=== PATIENT | female | born 1945 | race Caucasian/White ===

== ENCOUNTER 2019-05-01 11:48 | Observation (INO) | payer MEDICARE, OTHER ==
[~2019-05-01] VITALS: Ht 165.1 cm; Wt 65.8 kg
[~2019-05-01 11:48] MED LIST: ADULT ASPIRIN81 MG PO; ALENDRONATE SOD35 MG PO; ASPIRIN EC81 MG PO; CALCIUM600 MG PO; CENTRUM SILVER1 EAC1 PO; CINNAMON500 MG PO; FENOFIBRATE54 MG PO; GABAPENTIN600 MG PO; METFORMIN HCL500 MG PO; SIMVASTATIN20 MG PO; VITAMIN B-121000 MC1 PO; VITAMIN C WITH500 MG PO; VITAMIN D32000 UNIT PO; Z.0.GLUCOPHAGE500 MG MT; Z.0.SIMVASTATIN20 MG MT
--- OUTSIDE RECORDS SUMMARY | 2019-05-01 11:51 | XMS REPORT ---
Author Author [facility] Address Unknown Phone Unavailable Care Team Providers Care Brand Advocate Name Role Phone Unavailable Unavailable Problems This patient has no known problems. Allergies, Adverse Reactions, Alerts This patient has no known allergies or adverse reactions. Medications This patient has no known medications. Results Test Description Test Time Test Comments Text Results Atomic Results Result Comments BRAIN IMAGING, SPECT 2019-03-22 14:23:00 Reason for Exam:->parkinsonism FINAL REPORT PROCEDURE: BRAIN IMAGING - SPECT w/DaTScan CPT CODE: 18608 INDICATION: Parkinsonism PROTOCOL: Approximately 1 hour after oral administration of SSKI, 5.0 mCi of I-123 ioflupane (DaTScan) was injected intravenously. Static images of the head and neck were obtained beginning approximately 5 hours later. Tomographic reconstruction was performed in multiple planes. FINDINGS: Tracer distribution within the visualized structures is physiologic. IMPRESSION: Normal Study Signed: Kairna Stewart Verified Date/Time: 03/22/2019 14:23:19 Reading Location: [address] Reading Room
--- OUTSIDE RECORDS SUMMARY | 2019-05-01 11:51 | XMS REPORT | Summary of Care ---
Author Author [facility] Organization [facility] Address Unknown Phone Unavailable Care Team Providers Care It Help Desk Technician Name Role Phone Michelle Palomo MD PCP Unavailable Reason for Visit * Reason Comments Initial Visit * Consult, Test & Treat (Routine) Referred By Contact Referred To Contact Status Reason Specialty Diagnoses / Procedures Ai Ribera MD [address] [place] [address] Alonzo Carpenter MD [address] [place] [phone] Closed Ophth Diagnoses Neuro-Ophthalmol Unspecified ogy / esotropia Ophthalmology Diplopia Sixth (abducent) nerve palsy, right eye 6 nerve palsy of OD/Diplopia and Esotropia P rocedures LA OFFICE OUTPATIENT NEW 60 MINUTES NEURO NOV W ODS Encounter Details Care Team Description Date Type Department Alonzo Carpenter MD [address] [place] [phone] Initial Visit 04/15/2019 Office Visit [facility] Ophthalmology [address] [place] [phone] Allergies No Known Allergiesdocumented as of this encounter (statuses as of 04/15/2019) Medications End Date Status Medication Sig Dispensed Refills Start Date Active simvastatin (ZOCOR) 20 MG 0 tablet 7 Active aspirin 81 MG tablet Take 81 mg by 0 mouth. Active gabapentin (NEURONTIN) 0 600 MG tablet 7 documented as of this encounter (statuses as of 04/15/2019) Active Problems Problem Noted Date Dizziness 08/11/2017 documented as of this encounter (statuses as of 04/15/2019) Social History Date Tobacco Use Types Packs/Day Years Used Never Smoker Smokeless Tobacco: Never Used Drinks/Week oz/Week Comments Alcohol Use No Sex Assigned at Date Recorded Not on file Industry Job Start Date Occupation Not on file Not on file Not on file Travel End Travel History Travel Start No recent travel history available. documented as of this encounter Last Filed Vital Signs Not on filedocumented in this encounter Patient Instructions * Patient Instructions* Alonzo Carpenter MD - 04/15/2019 9:00 AM CDT I saw Ms. Trevizo at the [facility] on 04/15/2019. The following is a summary of the patient's ophthalmic evaluation prepared from [employer], our electronic medical record: 74 y.o. female Sent by: Dr. Ribera. She has had diplopia. On 03-28-19 and ESR (four) and CRP were normal. She had eye muscle surgery in April 2018. She said the diplopia improved for a few months and then recurred. She had an MRI of brain on 08-16-18, the report: 1. 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 2. Findings consistent with cerebral atrophy and mild white matter tract chronic microvascular ischemic change. 3. The 4 mm T2 low signal nodule in the right anterior sella is grossly stable s zahra the sella protocol MRI scan of September 28, 2016. Differential diagnosis includ es a Rathke cleft cyst versus pituitary microadenoma. She had an NM Spect study on 03-22-19, the report: Normal Study Ach receptor antibodies were normal. She said she could make the diplopia single with attempts to focus. She had diplopia for a few years before eye muscle surgery. She said the diplopia was intermittent but was present all the time if she was r elaxing. I reviewed portions of the history and review of systems, past medical history, and past ocular history, medications, allergies, and family history. I reviewed the new patient forms including review of systems, medications, aller gies, family history and social history. Automated Visual Field, Intermediate - OU - Both Eyes Visual Field Interpretation: 24-2 OD OS Result Peripheral constriction Peripheral constriction OCT, Optic Nerve - OU - Both Eyes OCT RNFL OD OS Interpretation Borderline Normal Measures Global 101 Global 101 OCT, Retina - OU - Both Eyes OCT Macula OD OS Interpretation Normal Normal Measures Centrally 268 Centrally 274 A sensorimotor examination was performed in order to assess ocular alignment for the potential diagnosis and/or treatment of an ocular motility disorder The sensorimotor examination included Stereoscopic testing with + Fly showed esotropia Impression: My opinion was, 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 The evaluation for another cause apart from strabismus had been unrevealing thus far. I suggested an orbital MRI with contrast. She said she was having an MRI on 04-15-19. I suggested she bring her prior imaging and return in 6 weeks. The report from today's examination was discussed, printed, and handed to the angi ramirez in order to help them understand their condition. The medications recommended by other providers have been reviewed; however, this does not constitute an endorsement of the use of those medications. If you have questions about the use of a particular medication please contact the provider that prescribed it for you. If you have been asked to bring medical records (including imaging studies on fi lm or CD) please do not mail them or try to have them sent to us. Please bring them with you to your appointment as this is the only way to be certain that the y arrive when you are here. Base Ophthamology Exam Visual Acuity (Snellen - Linear) Right Left Dist cc 20/20 20/20 Correction: Glasses Tonometry (Applanation, 9:40 AM) Right Left Pressure 12 12 Pupils Dark Light Shape React APD Right 3 2 Round Brisk None Left 3 2 Round Brisk None Visual Thakkar (Counting fingers) Left Right Full Full Extraocular Movement Right Left Full Full Perhaps a slight adduction deficit OD and abduction deficit OS With alternate cover testing CC Prism Diopters Primary Position 2 eso Right Gaze 8 eso Left Gaze 2 eso Up Gaze ortho Down Gaze 8 eso Near ortho Neuro/Psych Oriented x3: Yes Mood/Affect: Normal Dilation Both eyes: 2.5% Les Synephrine, 0.5% Mydriacyl @ 9:40 AM Edited by: Kan Abdul OSC; Alonzo Carpenter MD Base Ophthalmology Exam Addl. Tests Amsler Right Left Normal Normal Color Right Left Ishihara Edited by: Kan Abdul OSC Main Ophthalmology Exam External Exam Right Left External Normal Normal Normal STA pulses on each side There was no resistance of the globes to retropulsion Exophthalmometry (Base: 94) Right Left 13 13 Slit Lamp Exam Right Left Lids/Lashes Normal Normal Conjunctiva/Sclera White and quiet White and quiet Cornea Clear Clear Anterior Chamber Deep and quiet Deep and quiet Iris Round and reactive Round and reactive Lens NS NS Vitreous Normal Normal Fundus Exam Right Left Disc Normal Normal C/D Ratio 0.25 0.25 Macula Normal Normal Vessels Normal Normal Periphery Normal Normal Edited by: Alonzo Carpenter MD Sincerely, Alonzo Carpenter MD documented in this encounter Progress Notes * Alonzo Carpenter MD - 04/15/2019 9:00 AM CDT 74 y.o. female Sent by: Dr. Ribera. She has had diplopia. On 03-28-19 and ESR (four) and CRP were normal. She had eye muscle surgery in April 2018. She said the diplopia improved for a few months and then recurred. She had an MRI of brain on 08-16-18, the report: 1. Interval development of a chronic lacunar infarct in the left posterior centr um semiovale corresponding with findings seen on the CT scan of the sinuses Febr uary 2018. 2. Findings consistent with cerebral atrophy and mild white matter tract chronic microvascular ischemic change. 3. The 4 mm T2 low signal nodule in the right anterior sella is grossly stable s zahra the sella protocol MRI scan of September 28, 2016. Differential diagnosis includ es a Rathke cleft cyst versus pituitary microadenoma. She had an NM Spect study on 03-22-19, the report: Normal Study Ach receptor antibodies were normal. She said she could make the diplopia single with attempts to focus. She had diplopia for a few years before eye muscle surgery. She said the diplopia was intermittent but was present all the time if she was r elaxing. I reviewed portions of the history and review of systems, past medical history, and past ocular history, medications, allergies, and family history. I reviewed the new patient forms including review of systems, medications, aller gies, family history and social history. Automated Visual Field, Intermediate - OU - Both Eyes Visual Field Interpretation: 24-2 OD OS Result Peripheral constriction Peripheral constriction OCT, Optic Nerve - OU - Both Eyes OCT RNFL OD OS Interpretation Borderline Normal Measures Global 101 Global 101 OCT, Retina - OU - Both Eyes OCT Macula OD OS Interpretation Normal Normal Measures Centrally 268 Centrally 274 A sensorimotor examination was performed in order to assess ocular alignment for the potential diagnosis and/or treatment of an ocular motility disorder The sensorimotor examination included Stereoscopic testing with + Fly showed esotropia Impression: My opinion was, 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 The evaluation for another cause apart from strabismus had been unrevealing thus far. I suggested an orbital MRI with contrast. She said she was having an MRI on 04-15-19. I suggested she bring her prior imaging and return in 6 weeks. The report from today's examination was discussed, printed, and handed to the pa james in order to help them understand their condition. The medications recommended by other providers have been reviewed; however, this does not constitute an endorsement of the use of those medications. If you have questions about the use of a particular medication please contact the provider that prescribed it for you. If you have been asked to bring medical records (including imaging studies on fi lm or CD) please do not mail them or try to have them sent to us. Please bring them with you to your appointment as this is the only way to be certain that the y arrive when you are here. documented in this encounter Plan of Treatment Order Schedule Name Type Priority Associated Diagnoses Ordered: 04/15/2019 LA SPECIAL EYE LA Charge Routine Sector scotoma, bilateral EVAL,SENSORIMOTOR Diplopia Health Maintenance Due Date Last Done Comments MEDICARE AWV 1945 TETANUS SHOT (ADULT) 1958 FALL SCREEN 2008 OSTEOPOROSIS SCREENING 2008 FLU VACCINE > 6 MONTHS 01/24/2019 PNEUMOVAX >=65 (PPSV23) Completed 05/08/2012 PREVNAR >=65 (PCV13) Completed 09/23/2015 documented as of this encounter Procedures Comments Procedure Name Priority Date/Time Associated Diagnosis AUTOMATED VISUAL FIELD, Routine 04/15/2019 Sector scotoma, bilateral INTERMEDIATE - OU - BOTH 11:16 AM CDT EYES OCT, OPTIC NERVE - OU - Routine 04/15/2019 Sector scotoma, bilateral BOTH EYES 10:09 AM CDT OCT, RETINA - OU - BOTH Routine 04/15/2019 Sector scotoma, bilateral EYES 10:08 AM CDT documented in this encounter Results * AUTOMATED VISUAL FIELD, INTERMEDIATE - OU - BOTH EYES (04/15/2019 11:16 AM CDT) Specimen Narrative Performed At Visual Field Interpretation: 24-2 OD OS Result Peripheral constriction Peripheral constriction * OCT, OPTIC NERVE - OU - BOTH EYES (04/15/2019 10:09 AM CDT) Specimen Narrative Performed At OCT RNFL OD OS Interpretation Borderline Normal Measures Global 101 Global 101 * OCT, RETINA - OU - BOTH EYES (04/15/2019 10:08 AM CDT) Specimen Narrative Performed At OCT Macula OD OS Interpretation Normal Normal Measures Centrally 268 Centrally 274 documented in this encounter Visit Diagnoses Diagnosis Sector scotoma, bilateral - Primary Diplopia documented in this encounter Insurance Type Payer Benefit Subscriber ID Effective Phone Address Plan / Dates Group Medicare [facility]-P [id number] [place] [address] documented as of this encounter
[2019-05-01] MEDS ORDERED: HYDRALAZINE HCL 20 MG/ML VIAL IV STA (12:36)
[2019-05-01 12:48] LABS: BASOPHILS % 0.7 % (0.0-1.0); EOSINOPHILS # (AUTO) 0.1 (0.0-0.4); EOSINOPHILS % 2.4 % (0.0-6.0); HEMATOCRIT 43.7 % (34.2-44.1); HEMOGLOBIN 14.3 g/dL (12.0-16.0); LYMPHOCYTES # (AUTO) 1.8 (1.0-3.2); LYMPHOCYTES % 29.9 % (18.0-39.1); MEAN CORPUSCULAR HGB CONC 32.7 g/dL (31-35); MEAN CORPUSCULAR VOLUME 88.6 fL (81-99); MONOCYTES # (AUTO) 0.6 (0.2-0.8); NEUTROPHILS # (AUTO) 3.3 (2.1-6.9); NEUTROPHILS % 56.8 % (38.7-80.0); PLATELET COUNT 175 x10e3/uL (140-360); RED BLOOD COUNT 4.93 x10e6/uL (3.6-5.1); RED CELL DISTRIBUTION WIDTH 13.3 % (11.7-14.4)
[2019-05-01 13:02] LABS: INR 0.83; PROTHROMBIN TIME 11.9 seconds (11.9-14.5)
[2019-05-01 13:03] LABS: PARTIAL THROMBOPLASTIN TIME 29.5 seconds (23.8-35.5)
[2019-05-01 13:10] LABS: ALANINE AMINOTRANSFERASE 13 IU/L (0-55); ALBUMIN 4.3 g/dL (3.5-5.0); ALBUMIN/GLOBULIN RATIO 1.4 (0.8-2.0); ALKALINE PHOSPHATASE 135 IU/L (40-150); BLOOD UREA NITROGEN 13 mg/dL (7-26); BUN/CREATININE RATIO 17 (6-25); CARBON DIOXIDE 27 mmol/L (22-29); CHLORIDE 104 mmol/L (98-107); CREATINE KINASE 47 IU/L (29-168); CREATININE, SERUM 0.78 mg/dL (0.57-1.11); EST GLOMERULAR FILTRATION RATE > 60 ML/MIN (60-); GLUCOSE 100 mg/dL (74-118); SODIUM 140 mmol/L (136-145)
--- NOTE | 2019-05-01 13:16 | NUR ---
meds given per dr's orders and pt has tolerated well.
--- NOTE | 2019-05-01 14:48 | Diagnostic Imaging Report ---
EXAM: CT Chest WITH contrast- Pulmonary Embolism Protocol INDICATION: Chest pain COMPARISON: None TECHNIQUE: Chest was scanned utilizing a multidetector helical scanner from the lung apex through the level of the diaphragm after administration of IV contrast. Thin section reconstructions were obtained with special concentration on the pulmonary arteries. Coronal and sagittal reformations were obtained. Pulmonary embolism protocol was performed. IV CONTRAST: 100 cc of Isovue 370 RADIATION DOSE: Total DLP: 481.96 mGy*cm Dose modulation, iterative reconstruction, and/or weight based adjustment of the mA/kV was utilized to reduce the radiation dose to as low as reasonably achievable. COMPLICATIONS: None FINDINGS: LINES/ TUBES: None. PULMONARY ARTERIES: No filling defect is identified within the pulmonary arteries to the segmental level. The subsegmental pulmonary arteries are not well opacified. Main pulmonary artery measures 1.8 cm in diameter. LUNGS AND AIRWAYS: The central airways are patent. No focal consolidation or pulmonary edema. Mild biapical pleural parenchymal thickening/scarring. Minimal bibasilar dependent subsegmental atelectasis. No suspicious pulmonary nodules. PLEURA: The pleural spaces are clear. HEART AND MEDIASTINUM: The thyroid gland is normal. No supraclavicular, mediastinal, or hilar lymphadenopathy. The heart is not enlarged. No pericardial effusion. No evidence of right heart strain. Scattered atherosclerotic calcifications involve the coronary arteries, thoracic aorta, and proximal great vessels. Tiny sliding hiatal hernia. UPPER ABDOMEN: Limited images of the upper abdomen demonstrate no focal abnormality of the partially visualized liver, spleen, pancreas, adrenals, or upper most kidneys. BONES: The visualized bony thorax is within normal limits. SOFT TISSUES: Unremarkable. IMPRESSION: No pulmonary embolism. No focal pneumonia or pulmonary edema. Scattered atherosclerotic arterial calcifications including of the coronary arteries. Signed by: Stephen Martino MD on 05/01/2019 2:45 PM
[2019-05-01] MEDS ORDERED: SODIUM CHLORIDE 0.9% 50ML 50 ML ONE (15:33)
[2019-05-01] MEDS ORDERED: IOPAMIDOL 370 MG/ML 200 ML INFUS..BTL INJ ONE (15:33)
[2019-05-01] MEDS ORDERED: ONDANSETRON HCL INJ 2MG/ML 2ML 2 MG/ML VIAL IV PRN (16:00)
[2019-05-01] MEDS ORDERED: CLONIDINE HCL 0.1 MG TAB PO PRN (16:15)
[2019-05-01] MEDS ORDERED: ASPIRIN 81 MG CHEW TAB PO ONE (16:30)
[2019-05-01] MEDS ORDERED: ASPIRIN 325 MG TAB PO NR (16:30)
--- NOTE | 2019-05-01 17:05 | NUR ---
home med list updated in the computer.
--- NOTE | 2019-05-01 17:06 | NUR ---
dr. armas in to see the patient.
--- NOTE | 2019-05-01 17:07 | NUR ---
tele box #5-placed on the patient.
--- NOTE | 2019-05-01 17:17 | NUR ---
REPORT RECEIVED FROM DANILO IN ER AWAITING FOR PT TO ARRIVE TO FLOOR
--- NOTE | 2019-05-01 17:30 | NUR ---
DR. LIS JR. IN TO SEE THE PT.
[2019-05-01 17:46] VITALS: BP 166/70
[2019-05-01 18:04] VITALS: BP 166/72
[2019-05-01 18:15] VITALS: BP 166/72
[2019-05-01 20:00] VITALS: BP 118/65
[2019-05-01 20:17] LABS: CREATINE KINASE 41 IU/L (29-168)
[2019-05-01 20:18] VITALS: BP 118/65
[2019-05-02] VITALS (7 sets, daily range): BP systolic 110–159; BP diastolic 56–73
--- NOTE | 2019-05-02 01:34 | Consultation ---
DATE OF CONSULTATION: 05/01/2019 Cardiology Consultation REASON FOR CONSULTATION: Chest pain. HISTORY OF PRESENT ILLNESS: Ms. Trevizo is a 74-year-old lady with past medical history of hypercholesterolemia and chronic facial numbness, who comes into this institution with complaints of chest discomfort. She reports that over the past two weeks she is having sharp pains off and on both sides of her chest, pinpoint sensation pricking lasting minutes at a time with no known exacerbating or alleviating factors. This morning, she reports that she has had left parasternal chest dullness, discomfort 4/10 max in intensity with associated left facial numbness that is worsened on top of her chronic baseline numbness. She denies any associated nausea, vomiting, diaphoresis, or dyspnea. The pain has been ongoing and is unrelated to activity, position or eating. EKG revealed sinus rhythm, no ST-T wave changes and 1st set of cardiac enzyme is strongly negative. Cardiology was consulted for further evaluation. We had a long discussion with the patient and family at bedside today in terms of different management options and for the time being, she is preferring more of a conservative approach. PAST MEDICAL HISTORY: 1. Hypercholesterolemia. 2. 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 3. Prior history of cardiac catheterization 20 years ago, which was normal. 4. History of right liver tumor disease and had undergone partial hepatectomy and cholecystectomy at that time about 30 years ago. PAST SURGICAL HISTORY: 1. Partial hepatectomy and cholecystectomy 30 years ago as noted above. 2. Cardiac catheterization 20 years ago, normal. FAMILY HISTORY: Mother at 63 with multiple different kinds of cancer. Father in his 40s from a gunshot wound. SOCIAL HISTORY: She is a lifelong nonsmoker. Denies any alcohol or illicit drug use. ALLERGIES: NO KNOWN DRUG ALLERGIES. HOME MEDICATIONS: Include simvastatin, aspirin, vitamin D tablet, and vitamin B12. REVIEW OF SYSTEMS: GENERAL: Denies any fevers, chills, or any weight changes. HEENT: She does have facial numbness. No headaches. No visual changes. No sore throat or stuffy nose. RESPIRATORY: She denies any pleuritic component to the chest pain or discomfort. Has mild exertional dyspnea and occasional cough. CARDIOVASCULAR: As per HPI. Denies any palpitations. No orthopnea, PND, syncope, or near syncope. GI: Denies any abdominal pain, bright red blood per rectum, melena, nausea, vomiting, constipation, or diarrhea. She does report a history of hiatal hernia. : Denies any dysuria, pyuria, or change in urinary frequency. MUSCULOSKELETAL: Denies any back pain, knee pains or arthritis. ENDOCRINE: Denies any heat or cold intolerance. NEUROLOGIC: Positive for facial numbness, but denies any arm weakness. No prior history of TIA or stroke. SKIN: No rashes. ID: No noted infectious issues. The remainder of review of systems is negative otherwise as mentioned. PHYSICAL EXAMINATION: VITAL SIGNS: Height of 65 inches, weight of 145 pounds, BMI is 24.1, temperature of 98.6, pulse of 78, respiratory rate of 18 and blood pressure of 132/72. GENERAL: This is a well-nourished, well-developed lady, who is currently in no apparent distress. HEENT: Normocephalic and atraumatic. Pupils are equal, round, reactive to light. Extraocular movements are intact. Oropharynx is clear. NECK: No elevation of jugular venous pulsation. No carotid bruits. CARDIOVASCULAR: Regular rate and rhythm. Normal S1 and S2. A 1/6 systolic murmur at the left lower sternal border. LUNGS: Largely clear to auscultation bilaterally with good air entry. ABDOMEN: Soft, nontender, nondistended. Normoactive bowel sounds. No hepatosplenomegaly. There is old surgical scar from her liver and gallbladder surgery. BACK: No costovertebral angle tenderness. EXTREMITIES: Warm with 1 to 2+ bilateral radial pulses, 2+ bilateral femoral pulses, and 1 to 2+ pedal pulses. NEUROLOGIC: Cranial nerves II through XII are intact except for the subjective tingling sensation with palpation. Strength seems to be 5/5 and appears nonfocal. PSYCH: Seemed a little anxious, no depression. LABORATORY DATA: White count of 5.7, hemoglobin of 14.3, hematocrit 43.7, and platelets of 175. Sodium 140, potassium 4.0, chloride 104, bicarb 27, BUN 13, creatinine of 0.78, glucose of 100, AST 23, ALT 13, alkaline phosphatase of 131, total protein is 7.3, albumin of 4.3, INR 0.89. Chest CT reveals no pulmonary embolism and no acute abnormalities. EKG reveals normal sinus rhythm, normal axis and no ST-T wave changes concerning for ischemia. Cardiac enzymes negative x1. DIAGNOSES: 1. Chest pain with mixed typical and atypical features. 2. Hypercholesterolemia. 3. Facial numbness. 4. Subjective history of inability to ambulate fast enough to complete stress test and has had pharmacological stress test in the past. PLAN/RECOMMENDATIONS: 1. From a cardiovascular standpoint, we will continue aspirin therapy and can continue statin therapy. 2. We will check echocardiogram to evaluate heart structurally. 3. Monitor serial cardiac enzymes. 4. Telemetry monitoring. 5. Aggressive risk factor modification medical therapy. 6. We will follow up on lipid profile and TSH. 7. Assuming negative biomarkers and relatively preserved cardiac function, we will plan to proceed with nuclear stress test. Thank you for this referral. MD IRENE Quiroz/JONO /[id number]
[2019-05-02 06:36] LABS: BASOPHILS % 0.6 % (0.0-1.0); EOSINOPHILS # (AUTO) 0.2 (0.0-0.4); EOSINOPHILS % 3.3 % (0.0-6.0); HEMATOCRIT 40.3 % (34.2-44.1); HEMOGLOBIN 13.5 g/dL (12.0-16.0); LYMPHOCYTES # (AUTO) 2.1 (1.0-3.2); LYMPHOCYTES % 32.4 % (18.0-39.1); MEAN CORPUSCULAR HEMOGLOBIN 29.7 pg (28-32); MEAN CORPUSCULAR HGB CONC 33.5 g/dL (31-35); MEAN CORPUSCULAR VOLUME 88.8 fL (81-99); MONOCYTES # (AUTO) 0.7 (0.2-0.8); MONOCYTES % 10.8 % (4.4-11.3); NEUTROPHILS # (AUTO) 3.3 (2.1-6.9); NEUTROPHILS % 52.6 % (38.7-80.0); PLATELET COUNT 164 x10e3/uL (140-360); RED BLOOD COUNT 4.54 x10e6/uL (3.6-5.1); RED CELL DISTRIBUTION WIDTH 13.5 % (11.7-14.4)
[2019-05-02 06:51] LABS: INR 0.9; PROTHROMBIN TIME 12.6 seconds (11.9-14.5)
[2019-05-02 06:54] LABS: ALANINE AMINOTRANSFERASE 12 IU/L (0-55); ALBUMIN 3.9 g/dL (3.5-5.0); ALBUMIN/GLOBULIN RATIO 1.7 (0.8-2.0); ALKALINE PHOSPHATASE 121 IU/L (40-150); BLOOD UREA NITROGEN 14 mg/dL (7-26); BUN/CREATININE RATIO 19 (6-25); CALCIUM 9.5 mg/dL (8.4-10.2); CARBON DIOXIDE 26 mmol/L (22-29); CHLORIDE 106 mmol/L (98-107); CREATININE, SERUM 0.73 mg/dL (0.57-1.11); EST GLOMERULAR FILTRATION RATE > 60 ML/MIN (60-); GLUCOSE 107 mg/dL (74-118); SODIUM 140 mmol/L (136-145)
[2019-05-02 06:59] LABS: CREATINE KINASE MB 1.5 ng/mL (0-5.0)
--- NOTE | 2019-05-02 07:00 | NUR ---
RECEIVED PATIENT RESTING IN BED NO S/S OF DISTRESS. BED LOW, WHEELS LOCKED, SIDE RAILS X2. CALL LIGHT IN REACH WILL CONTINUE TO MONITOR PATIENT.
[2019-05-02 07:14] LABS: CHOL/HDL RATIO 4.4 (3.0-3.6)
[2019-05-02 07:21] LABS: THYROID STIMULATING HORMONE 2.752 uIU/mL (0.350-4.940)
--- NOTE | 2019-05-02 09:15 | NUR ---
PATIENT A/O X3, EVEN RESPIRATIONS ON RA. TELEMETRY #5 SB 59. PATIENT AMBULATES INDEPENDENTLY. NO CHEST PAIN AT THIS TIME. LEFT AC 18 GAUGE IV SL. PATIENT VOIDS IN TOILET. PATIENT NPO FOR STRESS TEST TODAY. CALL LIGHT IN REACH WILL CONTINUE TO MONITOR PATIENT.
[2019-05-02] MEDS ORDERED: REGADENOSON 0.4 MG/5 ML SYR IV ONE (09:38)
[2019-05-02] MEDS: ASPIRIN 325 MG TAB PO SCH (12:58)
--- NOTE | 2019-05-02 15:07 | Myoview Stress Test ---
DATE OF STUDY: 05/01/2019 17:39:00 Stress Test - Treadmill ONLY TITLE OF REPORT: Exercise nuclear stress test. TECHNICAL DETAILS: After risks, benefits, pros and cons of exercise nuclear stress test was explained to the patient, the patient agreed to proceed. The patient was brought down to the nuclear lab where she received 10.9 mCi dose of technetium-99m tetrofosmin intravenously and after 40 minutes, the patient was taken to the [employer] SPECT camera for resting myocardial perfusion imaging. Afterwards, the patient was then brought to the stress lab where 12-lead EKG monitoring and blood pressure monitoring were obtained. She exercised on a Florentino protocol going from a baseline heart rate of 65 beats per minute to maximum of 135 beats per minute above the target heart rate of 122 beats per minute. She exercised for total duration of 4 minutes and 30 seconds. At about 3 minutes and 30 seconds at a target heart rate of 122 beats per minute, she received a dose of 32.3 mCi dose of technetium-99m tetrofosmin intravenously. The patient was exercised afterwards to circulate the radioisotope. Baseline EKG revealed normal sinus rhythm, normal axis and no ST-T wave changes and at peak exercise there were no definitive ischemic EKG changes. After 25 minutes, the patient was then taken to the SPECT camera for stress myocardial perfusion imaging. FINDINGS: 1. Resting myocardial perfusion imaging reveals normal tracer uptake. 2. Stress myocardial perfusion imaging reveals normal tracer uptake. 3. The following gated measurements were obtained: End-diastolic volume was 30 mL, end systolic volume 3 mL, calculated left ventricular ejection fraction is 90% now with normal wall motion. CONCLUSIONS: 1. Normal myocardial perfusion imaging study revealing normal tracer uptake and no scintigraphic areas of ischemia. 2. Normal left ventricular function with a calculated ejection fraction greater than 70%. 3. Exercise treadmill stress test portion of this exam is negative for ischemic EKG changes. 4. Overall findings of the stress test compatible with a low risk stress test. Findings of the stress test explained to the patient including limitations. MD IRENE Quiroz/JONO /[id number]
--- NOTE | 2019-05-02 19:16 | NUR ---
CALL RECEIVED FROM DR Tamie HAYS.N/O'S RECEIVED AND ENTERED.
[2019-05-02] MEDS ORDERED: CLOPIDOGREL BISULFATE 75 MG TAB PO ONE (20:00)
[2019-05-02] MEDS: SODIUM CHLORIDE 0.9% 1000ML 1,000 ML IV SCH (22:00)
[2019-05-03] VITALS (9 sets, daily range): BP systolic 120–144; BP diastolic 57–76
[2019-05-03 05:39] LABS: BASOPHILS # (AUTO) 0.1 (0.0-0.1); EOSINOPHILS # (AUTO) 0.3 (0.0-0.4); EOSINOPHILS % 4.3 % (0.0-6.0); HEMATOCRIT 38.6 % (34.2-44.1); HEMOGLOBIN 12.6 g/dL (12.0-16.0); LYMPHOCYTES # (AUTO) 2.4 (1.0-3.2); LYMPHOCYTES % 39.1 % (18.0-39.1); MEAN CORPUSCULAR HEMOGLOBIN 29.4 pg (28-32); MEAN CORPUSCULAR HGB CONC 32.6 g/dL (31-35); MEAN CORPUSCULAR VOLUME 90.2 fL (81-99); MONOCYTES # (AUTO) 0.8 (0.2-0.8); MONOCYTES % 13.1 % (4.4-11.3); NEUTROPHILS # (AUTO) 2.6 (2.1-6.9); NEUTROPHILS % 42.2 % (38.7-80.0); PLATELET COUNT 151 x10e3/uL (140-360); RED BLOOD COUNT 4.28 x10e6/uL (3.6-5.1); RED CELL DISTRIBUTION WIDTH 13.6 % (11.7-14.4)
[2019-05-03 05:57] LABS: ANION GAP 11.2 mmol/L (8-16); BLOOD UREA NITROGEN 14 mg/dL (7-26); BUN/CREATININE RATIO 18 (6-25); CARBON DIOXIDE 24 mmol/L (22-29); CHLORIDE 109 mmol/L (98-107); CREATININE, SERUM 0.79 mg/dL (0.57-1.11); EST GLOMERULAR FILTRATION RATE > 60 ML/MIN (60-); GLUCOSE 106 mg/dL (74-118); POTASSIUM 4.2 mmol/L (3.5-5.1); SODIUM 140 mmol/L (136-145)
--- NOTE | 2019-05-03 07:17 | NUR ---
REPORT GIVEN TO ONCOMING NURSE.WALKING ROUNDS MADE.PT RESTING IN BED WITH NO S/S OF DISTRESS.
[2019-05-03] MEDS: ASPIRIN 325 MG TAB PO SCH (08:25)
--- NOTE | 2019-05-03 08:25 | NUR ---
CONSENT COMPLETED, PT AWARE OF NPO STATUS PENDING HEART CATH, DENIES PAIN AT THIS TIME, CALL LIGHT WITHIN REACH
[2019-05-03] MEDS: SODIUM CHLORIDE 0.9% 1000ML 1,000 ML IV SCH (09:46)
--- NOTE | 2019-05-03 10:16 | NUR ---
DIE HARDENER HERE TO LOCOMOTIVE INSPECTOR PT AND TRANSPORT TO DIE HARDENER, NO CHANGE IN CONDITION
[2019-05-03] MEDS ORDERED: VERAPAMIL HCL 2.5 MG/ML 2 ML VIAL ONE (10:33)
[2019-05-03] MEDS ORDERED: MIDAZOLAM HCL 2 MG/2 ML VIAL ONE (10:33)
[2019-05-03] MEDS ORDERED: SODIUM CHLORIDE 0.9% 1000ML 1,000 ML ONE (10:34)
[2019-05-03] MEDS ORDERED: IOPAMIDOL 370 MG/ML 200 ML INFUS..BTL INJ ONE (10:34)
[2019-05-03] MEDS ORDERED: LIDOCAINE HCL 2% LOCAL 20 ML VIAL ONE (10:34)
[2019-05-03] MEDS ORDERED: HEPARIN SOD/SOD CHLORIDE 2,000 ML ONE (10:34)
[2019-05-03] MEDS ORDERED: FENTANYL CITRATE/PF 100MCG/2 ML INJ ONE (10:34)
[2019-05-03] MEDS ORDERED: SODIUM CHLORIDE 0.9% 1000ML 1,000 ML IV SCH (11:33)
--- NOTE | 2019-05-03 12:10 | NUR ---
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
--- NOTE | 2019-05-03 15:00 | NUR ---
MD CALDWELL INTO SEE PT, DISCUSSED DISCHARGED INSTRUCTIONS, PT VERBALIZED UNDERSTANDING, PT EDUCATED DISCHARGE WILL BE AFTER BEDREST OVER AT 1700, PT VERBALIZED UNDERSTANDING
--- NOTE | 2019-05-03 17:45 | NUR ---
DISCHARGE INSTRUCTIONS REVIEWED WITH PT, PT VERBALIZED UNDERSTANDING, WHEELED OFF UNIT VIA WC FOR DISCHARGE, NO CHANGE IN CONDITION
--- NOTE | 2019-05-03 18:43 | Operative Report ---
DATE OF PROCEDURE: 05/03/2019 SURGEON: Nguyễn Neumann MD PROCEDURES PERFORMED: 1. Left heart cardiac catheterization, coronary angiography. 2. Left ventriculography. INDICATION FOR PROCEDURE: This is a 74-year-old lady with history of hypercholesteremia, who presents to this institution with left chest parasternal pressure-like sensation, waxes and wanes, worsening with activities. She was ischemically risk stratified with an exercise nuclear stress test on May 02, 2019, and was noted to have chest pain with the activity. However, there was no ischemic EKG changes and normal perfusion study. We continued to monitor this patient and she reported pain had been escalating worse. Due to lack of any other clear-cut etiologies of this discomfort. The patient wanted definitive ischemic evaluation with a cardiac catheterization, which took place today. DESCRIPTION OF PROCEDURE: After risks, benefits, pros and cons of exercise procedure were explained, the patient agreed to proceed. The patient was brought to the cardiac catheterization laboratory, where the right groin was prepped and draped in usual sterile fashion. A 1% lidocaine solution was used to numb right coronary system. Access to the right femoral artery was obtained and a short 4-B[place]i femoral sheath was placed. Selective coronary angiography of the napaimute left and right groins were performed. JL4 and 3DRC and JR4 diagnostic catheters respectively. Angled pigtail catheter was placed in the ventricle for ventriculography and hemodynamic assessment of ventricular filling pressures. The patient's anatomy showed just minimal plaquing and no hemodynamically significant disease. At that point in time, we decided to conclude the case and the sheath was removed, and manual compression was applied successfully achieving hemostasis. COMPLICATIONS: None. ESTIMATED BLOOD LOSS: None. FINDINGS: 1. Left main is angiographically normal and gives rise to an LAD and circumflex branch. 2. LAD and its branches just have mild minimal plaquing and mild luminal irregularities. 3. The left circumflex artery terminates into a tortuous mid marginal branch. This vessel and its branches are angiographically normal. 4. The RCA is dominant, gives rise to right PDA and right PLV branch. This vessel and its branches are angiographically normal. 5. Left ventricular ejection fraction is 60% with end-diastolic pressure of 12 mmHg. There is no significant LV to aortic pullback gradient. 6. Incidentally noted calcified plaque patch over the aortic wall distal to the left subclavian artery. At the conclusion of the case, we reviewed her CT scan with the radiologist, which essentially showed the same finding a calcified patch over the aorta and there is no evidence of dissection or penetrating ulcer. PLAN/RECOMMENDATIONS: 1. A 4-hour bedrest post cardiac catheterization today. 2. IV fluids for rehydration. 3. Aggressive risk factor modification medical therapy. 4. Assuming no access site complications, the patient is okay to go home later today. MD IRENE Quiroz/JONO /[id number] MTDD
--- NOTE | 2019-05-04 06:51 | Discharge Summary ---
PRIMARY CARE DOCTOR: Dr. Michelle Palomo. FINAL DIAGNOSIS: Chest pain of unclear etiology. SECONDARY DIAGNOSES: 1. Hypercholesterolemia. 2. Chronic facial numbness. 3. Previous liver tumor resection. 4. Previous cholecystectomy. STUDENT RECRUITER: Dr. Neumann, Cardiology. PROCEDURE/STUDIES PERFORMED: 1. Stress test. 2. Left heart catheterization. HISTORY: Per H and P. HOSPITAL COURSE: The patient underwent a stress test, which was okay. However, given high pretest probability and also the patient's preference, the patient underwent left heart catheterization, which was okay as well. Her echocardiogram was okay as well. The patient was seen and examined today. CONDITION ON DISCHARGE: Improved. DISCHARGE MEDICATIONS: Please see medication reconciliation form. MD DANDY Griggs/JONO /[id number]
== END 2019-05-03 17:59 | disposition home or self-care (01) ==
LOC: ER 11:48 → ERHOLD 16:13 → MED/SURG 17:48
PROVIDERS: ADMIT Internal Medicine; ATTEND Internal Medicine
DX: R07.9 Chest pain, unspecified (principal); R20.0 Anesthesia of skin; E78.00 Pure hypercholesterolemia, unspecified; Z90.49 Acquired absence of other specified parts of digestive tract; R03.0 Elevated blood-pressure reading, without diagnosis of hypertension
CPT/HCPCS: 36415 ×3; 71260; 78452; 80048; 80053 ×2; 80061; 82550 ×2; 82553 ×2; 84443; 84484 ×2; 85025 ×3; 85610 ×2; 85730; 93005; 93017; 93306; 93458; 99284; A9502; G0378 ×3; J0360; J2001; J2250; J3010; J7030 ×2; Q9967 ×2; 99152

== ENCOUNTER 2021-01-06 10:37 | Emergency (ER) | payer MEDICARE ==
[~2021-01-06] VITALS: Ht 317.5 cm; Wt 65.8 kg
[2021-01-06] MEDS ORDERED: SODIUM CHLORIDE 0.9% 1000ML 1,000 ML IV STA (10:42)
[2021-01-06] MEDS ORDERED: ASPIRIN 81 MG CHEW TAB PO ONE (10:45)
[2021-01-06 11:14] LABS: BASOPHILS # (AUTO) 0.1 (0.0-0.1); BASOPHILS % 0.9 % (0.0-1.0); EOSINOPHILS # (AUTO) 0.1 (0.0-0.4); EOSINOPHILS % 1.7 % (0.0-6.0); HEMATOCRIT 41.4 % (34.2-44.1); HEMOGLOBIN 13.3 g/dL (12.0-16.0); LYMPHOCYTES # (AUTO) 1.7 (1.0-3.2); LYMPHOCYTES % 29.9 % (18.0-39.1); MEAN CORPUSCULAR HGB CONC 32.1 g/dL (31-35); MEAN CORPUSCULAR VOLUME 90.2 fL (81-99); MONOCYTES # (AUTO) 0.5 (0.2-0.8); MONOCYTES % 9.3 % (4.4-11.3); NEUTROPHILS # (AUTO) 3.4 (2.1-6.9); PLATELET COUNT 204 x10e3/uL (140-360); RED BLOOD COUNT 4.59 x10e6/uL (3.6-5.1)
[2021-01-06 11:45] LABS: ALBUMIN 4.2 g/dL (3.5-5.0); ALBUMIN/GLOBULIN RATIO 1.4 (0.8-2.0); ANION GAP 14.5 mmol/L (8-16); CALCIUM 9.6 mg/dL (8.4-10.2); CREATININE, SERUM 0.78 mg/dL (0.57-1.11); POTASSIUM 3.5 mmol/L (3.5-5.1)
[2021-01-06 11:55] LABS: CREATINE KINASE MB 0.7 ng/mL (0-5.0)
[2021-01-06] MEDS ORDERED: SIMVASTATIN20 MG PO (12:10)
[2021-01-06] MEDS ORDERED: LAMOTRIGINE25 MG PO (12:10)
[2021-01-06] MEDS ORDERED: SODIUM CHLORIDE 0.9% 50ML 50 ML ONE (12:26)
[2021-01-06] MEDS ORDERED: IOPAMIDOL 370 MG/ML 200 ML INFUS..BTL INJ ONE (12:27)
== END 2021-01-06 14:07 | disposition home or self-care (01) ==
LOC: ER 10:45
DX: H11.32 Conjunctival hemorrhage, left eye (principal); S00.83XA Contusion of other part of head, initial encounter; R55 Syncope and collapse; W18.30XA Fall on same level, unspecified, initial encounter; E78.5 Hyperlipidemia, unspecified
CPT/HCPCS: 36415; 70450; 70486; 71045; 71260; 72125; 80053; 82550; 82553; 83880; 84484; 85025; 85379; 93005; 99284; J7030; Q9967

== ENCOUNTER 2024-04-25 08:26 | Observation (INO) | payer MEDICARE ==
[2024-04-25] VITALS (7 sets, daily range): BP systolic 133–139; BP diastolic 52–64; PULSE 59–63; RESP 18–20; TEMP 97.9–98.1; O2SAT 99–100
[~2024-04-25] VITALS: Ht 165.1 cm; Wt 56.0 kg
[~2024-04-25 08:26] MED LIST changes: +LAMOTRIGINE25 MG PO
[2024-04-25 08:52] LABS: BASOPHILS % 0.6 % (0.0-1.0); EOSINOPHILS # (AUTO) 0.3 (0.0-0.4); EOSINOPHILS % 4.5 % (0.0-6.0); HEMATOCRIT 45.5 % (34.2-44.1); HEMOGLOBIN 14.4 g/dL (12.0-16.0); LYMPHOCYTES # (AUTO) 2.1 (1.0-3.2); LYMPHOCYTES % 33.8 % (18.0-39.1); MEAN CORPUSCULAR HEMOGLOBIN 29.1 pg (28-32); MEAN CORPUSCULAR HGB CONC 31.6 g/dL (31-35); MEAN CORPUSCULAR VOLUME 91.9 fL (81-99); MONOCYTES # (AUTO) 0.6 (0.2-0.8); MONOCYTES % 9.6 % (4.4-11.3); NEUTROPHILS # (AUTO) 3.2 (2.1-6.9); NEUTROPHILS % 51.3 % (38.7-80.0); PLATELET COUNT 178 x10e3/uL (140-360); RED BLOOD COUNT 4.95 x10e6/uL (3.6-5.1); RED CELL DISTRIBUTION WIDTH 14.8 % (11.7-14.4); WHITE BLOOD COUNT 6.24 x10e3/uL (4.8-10.8)
[2024-04-25 09:10] LABS: INR 0.92; PROTHROMBIN TIME 12.8 seconds (11.9-14.5)
[2024-04-25 09:11] LABS: PARTIAL THROMBOPLASTIN TIME 27.7 seconds (23.8-35.5)
[2024-04-25 09:17] LABS: ALANINE AMINOTRANSFERASE 13 IU/L (0-55); ALBUMIN 4.1 g/dL (3.5-5.0); ALBUMIN/GLOBULIN RATIO 1.1 (0.8-2.0); ALKALINE PHOSPHATASE 80 IU/L (40-150); ANION GAP 16.8 mmol/L (8-16); BILIRUBIN,TOTAL 0.8 mg/dL (0.2-1.2); BLOOD UREA NITROGEN 12 mg/dL (7-26); BUN/CREATININE RATIO 12 (6-25); CALCIUM 9.8 mg/dL (8.4-10.2); CARBON DIOXIDE 23 mmol/L (22-29); CHLORIDE 107 mmol/L (98-107); CREATINE KINASE 41 IU/L (29-168); CREATININE, SERUM 1.02 mg/dL (0.57-1.11); EST GLOMERULAR FILTRATION RATE 55 ML/MIN (>=60); GLUCOSE 114 mg/dL (74-118); MAGNESIUM 2.1 MG/DL (1.3-2.1); POTASSIUM 3.8 mmol/L (3.5-5.1); SODIUM 143 mmol/L (136-145); TOTAL PROTEIN 7.8 g/dL (6.5-8.1)
[2024-04-25] MEDS: ONDANSETRON HCL INJ 2MG/ML 2ML 2 MG/ML VIAL IV STA (09:25)
[2024-04-25] MEDS ORDERED: ONDANSETRON HCL INJ 2MG/ML 2ML 2 MG/ML VIAL IV PRN (10:45)
[2024-04-25] MEDS: ACETAMIN/BUTALBITAL/CAFFEINE TAB PO ONE (11:14)
[2024-04-25 11:29] LABS: TROPONIN I < 0.05 ng/mL (0.0-0.40)
[2024-04-25] MEDS ORDERED: ACETAMINOPHEN 325 MG TAB PO PRN (12:00)
[2024-04-25] MEDS ORDERED: HYDRALAZINE HCL 20 MG/ML VIAL IV PRN (12:00)
[2024-04-25 16:33] LABS: CREATINE KINASE 39 IU/L (29-168)
[2024-04-25] MEDS: LAMOTRIGINE 100 MG TAB PO SCH (22:07)
[2024-04-25] MEDS: SIMVASTATIN 20 MG TAB PO SCH (22:08)
[2024-04-26] VITALS (8 sets, daily range): BP systolic 107–141; BP diastolic 55–66; PULSE 60–66; RESP 16–18; TEMP 97.3–98.4; O2SAT 97–100
[2024-04-26 05:40] LABS: BASOPHILS # (AUTO) 0.1 (0.0-0.1); BASOPHILS % 0.7 % (0.0-1.0); EOSINOPHILS # (AUTO) 0.4 (0.0-0.4); EOSINOPHILS % 5.4 % (0.0-6.0); HEMATOCRIT 41.1 % (34.2-44.1); HEMOGLOBIN 12.9 g/dL (12.0-16.0); LYMPHOCYTES # (AUTO) 2.2 (1.0-3.2); LYMPHOCYTES % 32.5 % (18.0-39.1); MEAN CORPUSCULAR HEMOGLOBIN 29.1 pg (28-32); MEAN CORPUSCULAR HGB CONC 31.4 g/dL (31-35); MEAN CORPUSCULAR VOLUME 92.6 fL (81-99); MONOCYTES # (AUTO) 0.7 (0.2-0.8); MONOCYTES % 10.4 % (4.4-11.3); NEUTROPHILS # (AUTO) 3.5 (2.1-6.9); NEUTROPHILS % 50.7 % (38.7-80.0); PLATELET COUNT 154 x10e3/uL (140-360); RED BLOOD COUNT 4.44 x10e6/uL (3.6-5.1); RED CELL DISTRIBUTION WIDTH 14.7 % (11.7-14.4); WHITE BLOOD COUNT 6.83 x10e3/uL (4.8-10.8)
[2024-04-26 06:27] LABS: ALBUMIN 3.5 g/dL (3.5-5.0); ALBUMIN/GLOBULIN RATIO 1.1 (0.8-2.0); ANION GAP 13.9 mmol/L (8-16); BILIRUBIN,TOTAL 0.8 mg/dL (0.2-1.2); CHOL/HDL RATIO 4.3 (3.0-3.6); CREATININE, SERUM 1.02 mg/dL (0.57-1.11); POTASSIUM 3.9 mmol/L (3.5-5.1); TOTAL PROTEIN 6.6 g/dL (6.5-8.1)
[2024-04-26 06:45] LABS: CREATINE KINASE 43 IU/L (29-168)
[2024-04-26 07:33] LABS: TROPONIN I < 0.001 ng/mL (0-0.300)
[2024-04-26] MEDS ORDERED: LAMOTRIGINE 25 MG TAB PO SCH (09:00)
[2024-04-26] MEDS ORDERED: NON-FORMULARY MEDICATION (Cholecalciferol (Vitamin D3) (Vitamin D3) 2,000 UNITS) PO SCH (09:00)
[2024-04-26] MEDS: ASPIRIN 81 MG ENTERIC COATED PO SCH (09:50)
[2024-04-26] MEDS: CHOLECALCIFEROL 1,000 UNIT TAB PO SCH (09:51)
[2024-04-26] MEDS: CYANOCOBALAMIN 1,000 MCG TAB PO SCH (09:51)
[2024-04-26] MEDS ORDERED: ACETAMIN/BUTALBITAL/CAFFEINE TAB PO PRN (12:45)
[2024-04-26] MEDS ORDERED: REGADENOSON 0.4 MG/5 ML SYR IV ONE (13:46)
[2024-04-26] MEDS ORDERED: ONDANSETRON HCL 4 MG ORAL DISINTEGRATING TAB PO PRN (14:00)
[2024-04-26 20:10] LABS: CLARITY,URINE TURBID (CLEAR); COLOR,URINE BROWN (YELLOW); LEUKOCYTE ESTERASE ,URINE NEGATIVE (NEGATIVE); NITRITE,URINE NEGATIVE (NEGATIVE); PH,URINE 7 (5 - 7)
[2024-04-26 20:11] LABS: GLUCOSE, URINE NEGATIVE (NEGATIVE); KETONES,URINE TRACE (NEGATIVE); PROTEIN,URINE DIPSTICK TRACE (NEGATIVE); URINE UROBILINOGEN 2 mg/dL (0.2 - 1)
[2024-04-26 20:12] LABS: BILIRUBIN,URINE NEGATIVE (NEGATIVE)
[2024-04-26 20:14] LABS: BACTERIA,URINE RARE /HPF; EPITHELIAL CELLS,URINE RARE /LPF; RBC,URINE >50 /HPF (0-5); WBC,URINE (MAN) 0-5 /HPF (0-5)
[2024-04-26] MEDS ORDERED: SIMVASTATIN 20 MG TAB PO SCH (21:00)
[2024-04-27] VITALS: BP 121/56; PULSE 63; RESP 18; TEMP 98.4; O2SAT 98
[2024-04-27 04:00] VITALS: BP 101/55; PULSE 62; RESP 18; TEMP 97.5; O2SAT 99
[2024-04-27 07:48] VITALS: BP 130/62; PULSE 58; RESP 18; TEMP 97.6; O2SAT 98
[2024-04-27 08:00] VITALS: BP 130/62; PULSE 58; RESP 18; TEMP 97.6; O2SAT 98
[2024-04-27 11:44] VITALS: BP 120/56; PULSE 57; RESP 17; TEMP 97.5; O2SAT 96
[2024-04-27] MEDS: NITROFURANTOIN MACROCRYSTALS 100 MG CAP PO SCH (12:10)
[2024-04-27] MEDS: Morphine 2mg Syringe 2 MG/ML SYR IV PRN (17:35)
[2024-04-27] MEDS ORDERED: CIPRO500 MG PO (18:50)
== END 2024-04-27 19:00 | disposition home or self-care (01) ==
LOC: ER 08:30 → ERHOLD 10:38 → MED/SURG 14:35
PROVIDERS: ADMIT Internal Medicine; ATTEND Internal Medicine
DX: R07.9 Chest pain, unspecified (principal); R51.9 Headache, unspecified; H53.9 Unspecified visual disturbance; E78.00 Pure hypercholesterolemia, unspecified; N20.2 Calculus of kidney with calculus of ureter; M62.9 Disorder of muscle, unspecified; Z86.73 Personal history of transient ischemic attack (TIA), and cerebral infarction without residual deficits; R20.0 Anesthesia of skin; Z79.899 Other long term (current) drug therapy; Z79.82 Long term (current) use of aspirin
CPT/HCPCS: 36415 ×2; 70450; 70551; 71045; 74176; 78452; 80053 ×2; 80061; 81001; 82550 ×2; 83735; 84484 ×2; 85025 ×2; 85610; 85730; 93005; 93017; 93306; 99284; A9502; G0378 ×3; J2270; J2405; J2785